=== PATIENT | female | born 1945 | race Caucasian/White ===

== ENCOUNTER → 2021-03-27 | Outpatient (CLI) | payer MEDICARE ==
--- NOTE | 2021-03-27 13:21 | Diagnostic Imaging Report ---
EXAMINATION: Left knee radiographs, 4 views including weightbearing. COMPARISON: None. HISTORY: 75-year-old female, injury. Left knee pain. FINDINGS: There is no identified acute fracture. The patella is normally positioned. There is no knee joint effusion. There is mild medial compartment joint space loss. There is no osteophyte formation. IMPRESSION: 1. Mild medial compartment joint space loss without osteophyte formation. Additional joint spaces appear relatively well preserved. 3. No joint effusion. 4. No identified acute fracture. Dictated by: Dictated on workstation # [id number]
== END ==
LOC: ORTHO 10:31
PROVIDERS: ATTEND Orthopaedic Surgery
DX: M17.12 Unilateral primary osteoarthritis, left knee (principal)
CPT/HCPCS: 73564; G0463; 99203